=== PATIENT | male | born 1985 ===

== ENCOUNTER 2017-10-29 02:31 | Emergency (ER) | payer SELFPAY ==
[2017-10-29 02:49] VITALS: RESP 16
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
[2017-10-29 07:59] VITALS: BP 113/57; PULSE 80; TEMP 98; O2SAT 99
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
== END 2017-10-29 08:02 | disposition home or self-care (01) ==
LOC: H.ER 02:31
DX: F10.129 Alcohol abuse with intoxication, unspecified (principal); M54.9 Dorsalgia, unspecified; Y04.0XXA Assault by unarmed brawl or fight, initial encounter; Y99.0 Civilian activity done for income or pay
CPT/HCPCS: 72100; 82948; 99284; G0480